=== PATIENT | male | born 1960 | race Caucasian/White ===

== ENCOUNTER → 2020-02-27 | Outpatient (CLI) | payer BC ==
[~2020-02-27] MED LIST: CALCITRIOL PO; COREG 25MG25 MG/TAB PO; GLUCOTROL XL10 MG PO; HUMALOG100 U/ML SQ; LASIX 20MG TABL20 MG PO; LIPITOR20 MG PO; LOFIBRA160 MG PO; REVATIO20 MG PO; SYNTHROID0.137 MG; ZYLOPRIM 300MG300 MG PO
== END ==
LOC: COL.VAS 08:09
DX: N18.5 Chronic kidney disease, stage 5 (principal)

== ENCOUNTER 2020-03-02 14:32 | Inpatient (IN) | payer BC ==
[~2020-03-02] VITALS: Ht 182.9 cm; Wt 118.5 kg
[2020-03-03] MEDS ORDERED: ZYLOPRIM 300MG300 MG PO (09:21)
[2020-03-03] MEDS ORDERED: LIPITOR20 MG PO (09:22)
[2020-03-03] MEDS ORDERED: LASIX 20MG TABL20 MG PO (09:24)
[2020-03-03] MEDS ORDERED: CALCITRIOL PO (09:26)
[2020-03-03 09:27] VITALS: BP 168/58; PULSE 61; TEMP 98.4
[2020-03-03] MEDS ORDERED: COREG 25MG25 MG/TAB PO (09:27)
[2020-03-03] MEDS ORDERED: LOFIBRA160 MG PO (09:27)
[2020-03-03] MEDS ORDERED: GLUCOTROL XL10 MG PO (09:29)
[2020-03-03] MEDS ORDERED: SYNTHROID0.137 MG (09:30)
[2020-03-03 09:31] LABS: BASO % 0.3 % (0.0-2.0); EOS # 0.4 (0.0-0.7); EOS % 5.7 % (0-4.0); GRAN # 5.6 (1.4-6.5); GRAN % 71.8 % (42.2-75.2); LYMPH # 1.1 (1.2-3.4); LYMPH % 13.5 % (20.0-51.0); MEAN CELL VOLUME 95 fl (80.0-100.0); MEAN CORPUSCULAR HGB CONC 32 g/dl (33.0-37.0); MEAN PLATELET VOLUME 10.5 fl (7.4-10.4); MONO # 0.6 (0.1-0.6); MONO % 8.2 % (1.7-9.3); PLATELET COUNT 186 K/mm3 (130-400); RED BLOOD COUNT 3.15 M/mm3 (4.20-5.60); REDCELL DISTRIBUTION WIDTH-CV 13.8 % (11.5-14.5)
[2020-03-03] MEDS ORDERED: REVATIO20 MG PO (09:33)
[2020-03-03 09:34] LABS: HEMATOCRIT 29.8 % (42.0-52.0); HEMOGLOBIN 9.4 g/dl (13.5-18.0); MEAN CORPUSCULAR HEMOGLOBIN 30 pg (27.0-31.0)
[2020-03-03 09:47] LABS: ALBUMIN 3.7 gm/dL (3.5-5.0); BILIRUBIN,TOTAL 0.5 mg/dL (0.0-1.0); CALCIUM 8.9 mg/dL (8.4-10.2); CREATININE, serum 5.21 (0.66-1.25); PHOSPHOROUS 5.5 mg/dL (2.5-4.5); POTASSIUM 3.9 mmol/L (3.4-5.0); TOTAL PROTEIN 6.5 gm/dL (6.4-8.2)
--- NOTE | 2020-03-03 10:36 | NUR ---
Pt up to room 315, initial completed by CARSON Gates. Pt is A&O, independent in room. Pt on room air, denies any pain, dizziness, SOB, N/V/D. 20G RFA INT IV started by BUD mendez. Pt to have dialysis catheter placed, consent signed, all questions answered. Allergies and med rec completed. No further needs at this time.
[2020-03-03 10:50] VITALS: BP 184/81; PULSE 62
--- NOTE | 2020-03-03 10:54 | NUR ---
SEE MERGE DOCUMENTATION FOR MEDICATION ADMINISTRATION TIMES AND INTRA/POST PROCEDURE SEDATION ASSESSMENTS.
--- NOTE | 2020-03-03 12:04 | NUR ---
Pt back from catheter placement procedure. Pt is A&O, denies pain. RIJ placement site is CDI. Pt hooked up to VS monitoring. BP slightly elevated, will give PRN hydralazine. No further needs at this time.
--- NOTE | 2020-03-03 12:04 | NUR ---
SW met with patient to complete intake. Patient states that he recently moved from [place] and stays with his daughter and in [place]. He states that his is Flakita [phone]. He provides that he does not utilize any DME. Patient also provides that he is independent. Patient provides that his PCP is Luis M Mcmanus, he obtains medications from the [facility] in [place], [place], and states that he is able to afford his medications. Patient states that he believes that he has the documentation for DPOA-HC somewhere, but does not know where this documentation is specifically. SW offered DPOA-HC documentation to appoint someone and patient stated he would like to obtain the documentation to review information and get back to the SW at a later time on who he would like to appoint. SW provided DPOA-HC documenation to patient. Patient states that he has no questions or concerns about dishcarge at this time. SW will continue to follow.
[2020-03-03 13:11] LABS: IRON,SERUM 58 ug/dL (35-150)
[2020-03-03 13:20] LABS: TOTAL IRON BINDING CAPACITY 326 ug/dL (261-462)
[2020-03-03 16:04] VITALS: BP 164/60; PULSE 58; TEMP 97.7
--- NOTE | 2020-03-03 19:25 | NUR ---
Pt went to dialysis shortly after procedure, around 1230. Pt did not receive PRN hydralazine d/t going to dialysis. Pt tolerated well. Pt stated he had some pain/discomfort to RIJ site around 1830, Ultram PRN given. Admission completed. Pt is doing well, A&O, independent. RFA INT IV flushes w/o complications. No other needs expressed.
--- NOTE | 2020-03-03 20:32 | NUR ---
Pt assessment completed and documented. Pt sitting in recliner watching tv. Pt alert and oriented x4. Complaints of 7/10 deep pain to right chest where dialysis cath was placed. PRN tylenol given per orders. INT to right forearm without complications. PT denies any other needs at this time. Call light within reach. Will continue to monitor.
[2020-03-03 20:39] LABS: HEPATITIS B CORE AB,TOTAL Negative (()); HEPATITIS B SURFACE ANTIBODY <2.0 (()); HEPATITIS B SURFACE ANTIGEN Negative (Negative); HEPATITIS C VIRUS ANTIBODY Negative (Negative)
[2020-03-03 20:50] VITALS: BP 183/65; PULSE 64; TEMP 98.2
[2020-03-03 21:24] VITALS: BP 182/60; PULSE 64
[2020-03-03 23:59] VITALS: BP 185/62; PULSE 59; TEMP 98.7
[2020-03-04] VITALS (7 sets, daily range): BP systolic 149–193; BP diastolic 54–64; PULSE 59–79; TEMP 97.7–98.7
--- NOTE | 2020-03-04 05:31 | NUR ---
Pt had uneventful shift. Pt rested well throughout the night. PRN hydralazine given x2 per orders for elevated BP. INT to right forearm free of complications. Complaints of pain at the beginning of the night to right chest dialysis cath site. PRN tylenol given x1 per orders. Pt denied pain for the remainder of the night. Pt denies any other needs at this time. Call light within reach. Will continue to monitor.
--- NOTE | 2020-03-04 06:39 | NUR ---
Report given to BUD Sotelo
[2020-03-04 08:31] LABS: BASO % 0.3 % (0.0-2.0); EOS # 0.4 (0.0-0.7); EOS % 5.8 % (0-4.0); GRAN # 4.3 (1.4-6.5); GRAN % 69.8 % (42.2-75.2); LYMPH % 15.4 % (20.0-51.0); MEAN CELL VOLUME 95 fl (80.0-100.0); MEAN CORPUSCULAR HGB CONC 32 g/dl (33.0-37.0); MEAN PLATELET VOLUME 10.2 fl (7.4-10.4); MONO # 0.5 (0.1-0.6); MONO % 8.4 % (1.7-9.3); PLATELET COUNT 156 K/mm3 (130-400); REDCELL DISTRIBUTION WIDTH-CV 13.8 % (11.5-14.5)
[2020-03-04] MEDS ORDERED: HUMALOG100 U/ML SQ (08:32)
[2020-03-04 08:37] LABS: HEMATOCRIT 28.4 % (42.0-52.0); HEMOGLOBIN 9.1 g/dl (13.5-18.0); MEAN CORPUSCULAR HEMOGLOBIN 30 pg (27.0-31.0)
[2020-03-04 08:39] LABS: ALBUMIN 3.4 gm/dL (3.5-5.0); CALCIUM 8.8 mg/dL (8.4-10.2); CREATININE, serum 4.65 (0.66-1.25); PHOSPHOROUS 4.8 mg/dL (2.5-4.5)
--- NOTE | 2020-03-04 10:48 | NUR ---
pt assessment completed and charted. Medications administered per oct. Pt denies pain or discomfort at this time or need for pain medication. [facility] dialysis cath in place, site is CDI, some soreness noted "but better than yesterday" per pt. RFA INT IV flushes w/o complications. Pt on room air, breathing is even and unlabored. Pt denies SOB, N/V/D. BS active x4. Mild edema noted to BLE. Pt has had elevated blood pressures, Ruby RN notified and aware. Hydralazine PRN administered and pt will be going to dialysis this afternoon. No further needs expressed.
--- NOTE | 2020-03-04 11:22 | NUR ---
First visit from the engineer operations and maintenance. No needs right now.
--- NOTE | 2020-03-04 12:35 | NUR ---
Pt down for dialysis at this time.
--- NOTE | 2020-03-04 18:52 | NUR ---
Pt back from dialysis around 1600. VSS. Pt started feeling "unwell" and BP was getting low during dialysis, states he feels ok now. Pt received Novolog per sliding scale and provided w/ turkey sandwich since he missed lunch. [facility] site is [facility], no issues noted. No other concerns expressed.
--- NOTE | 2020-03-04 20:05 | NUR ---
Pt assessment completed and documeted. Pt sitting up in chair watching television. Complaints of 3/10 pain to right IJ dialysis catheter site that is described as tender. Denies need for PRN pain medication at this time. Right IJ dialysis cath CDI and without complications. Right forearm INT patent and without complications. Pt denies any other needs at this time. Call light within reach. Will continue to monitor.
--- NOTE | 2020-03-04 22:04 | NUR ---
Blood sugar checked and is 220 at this time. Will administer sliding scale insulin per orders.
[2020-03-05] VITALS (9 sets, daily range): BP systolic 121–151; BP diastolic 46–63; PULSE 61–75; TEMP 97.7–98.8
--- NOTE | 2020-03-05 05:00 | NUR ---
Pt had uneventful shift. Pt stated he was able to get some rest tonight. PRN tylenol given x1 per orders for pain located to right IJ dialysis catheter site. Pt NPO since midnight for procedure.INT to right forearm without complications. Pt denies any other needs at this time. Call light within reach.
[2020-03-05 06:24] LABS: BASO % 0.3 % (0.0-2.0); EOS # 0.3 (0.0-0.7); EOS % 5.3 % (0-4.0); GRAN # 4.2 (1.4-6.5); MEAN CELL VOLUME 96 fl (80.0-100.0); MEAN CORPUSCULAR HGB CONC 31 g/dl (33.0-37.0); MEAN PLATELET VOLUME 11.1 fl (7.4-10.4); MONO # 0.6 (0.1-0.6); MONO % 9.9 % (1.7-9.3); PLATELET COUNT 128 K/mm3 (130-400); RED BLOOD COUNT 2.94 M/mm3 (4.20-5.60); REDCELL DISTRIBUTION WIDTH-CV 13.8 % (11.5-14.5)
[2020-03-05 06:37] LABS: ALBUMIN 3.2 gm/dL (3.5-5.0); CALCIUM 8.7 mg/dL (8.4-10.2); CREATININE, serum 4.02 (0.66-1.25); PHOSPHOROUS 4.3 mg/dL (2.5-4.5)
[2020-03-05 06:50] LABS: HEMATOCRIT 28.1 % (42.0-52.0); HEMOGLOBIN 8.7 g/dl (13.5-18.0); MEAN CORPUSCULAR HEMOGLOBIN 30 pg (27.0-31.0)
--- NOTE | 2020-03-05 11:02 | NUR ---
Patient has left floor to go for procedure. Ordered fluids were initiated and patient was dressed in gown per surigal request. Consent was noted to be signed.
--- NOTE | 2020-03-05 14:45 | NUR ---
Patient returned from procedure at 1315. Was awake and alert, did state he could use a nap. He requested a drink of water. Head of bed was elevated and ice water provided. Did drink without difficulty. Incision is noted to be in left AC. Edges are well approximated, there is no drainage. Patient states his arm is sore at the incison site but mainly at his left shoulder, he voiced it was because he had it over his head for too long. PRN tramadol provided. Ate lunch without difficulty, no nausea. Call light and personal items are within reach
--- NOTE | 2020-03-05 19:10 | NUR ---
Received report from Kortney. Seen patient awake, sitting in the recliner. With INt on right forearm. With fistula on left forearm, incision is clean, dry and intact. He is independent in the room. Instructed on fluid restriction of 1500ml.
--- NOTE | 2020-03-05 19:17 | NUR ---
REPORT GIVEN TO ONCOMING SHIFT. PATIENT IS UP IN RECLINER TALKING ON PHONE. DID ASSESS INCISION TO THE LEFT AC AND EDGES ARE WELL APPROXIMATED, NO REDNESS OR DRAINAGE.
[2020-03-06 00:13] VITALS: BP 155/62; PULSE 65; TEMP 98.4
--- NOTE | 2020-03-06 07:00 | NUR ---
Patient had an uneventful night. He states he was able to sleep. This morning he just verbalized pain on his IJ insertion site with pain score of 4/10. Tylenol PRN given.
--- NOTE | 2020-03-06 07:02 | NUR ---
Bedside shift report received from BUD Harrell. pT in bed resting, awakens easily, denies needs, will continue to monitor.
--- NOTE | 2020-03-06 07:57 | NUR ---
Assessment hcarted. Pt escorted down to dialysis via wheelchair. pt independent to w/c, awake nad alert, denies pain or other needs. Bruit and thrill auscultated to GEORGESE. RUC HD catheter. RFA INT. Will resume care after dialysis.
[2020-03-06 09:13] LABS: BASO % 0.3 % (0.0-2.0); EOS # 0.4 (0.0-0.7); EOS % 4.6 % (0-4.0); GRAN % 75.3 % (42.2-75.2); LYMPH # 0.9 (1.2-3.4); LYMPH % 11.4 % (20.0-51.0); MEAN CELL VOLUME 96 fl (80.0-100.0); MEAN CORPUSCULAR HGB CONC 32 g/dl (33.0-37.0); MEAN PLATELET VOLUME 11.1 fl (7.4-10.4); MONO # 0.6 (0.1-0.6); MONO % 8.1 % (1.7-9.3); PLATELET COUNT 156 K/mm3 (130-400); RED BLOOD COUNT 2.87 M/mm3 (4.20-5.60); REDCELL DISTRIBUTION WIDTH-CV 14.1 % (11.5-14.5)
[2020-03-06 09:15] LABS: HEMATOCRIT 27.4 % (42.0-52.0); HEMOGLOBIN 8.7 g/dl (13.5-18.0); MEAN CORPUSCULAR HEMOGLOBIN 30 pg (27.0-31.0)
[2020-03-06 09:28] LABS: ALBUMIN 3.3 gm/dL (3.5-5.0); CALCIUM 8.8 mg/dL (8.4-10.2); CREATININE, serum 4.82 (0.66-1.25); PHOSPHOROUS 4.5 mg/dL (2.5-4.5); POTASSIUM 4.1 mmol/L (3.4-5.0)
[2020-03-06] MEDS ORDERED: ULTRAM 50MG TAB50 MG PO (10:37)
[2020-03-06] MEDS ORDERED: COZAAR 25MG25 MG/TAB PO (10:42)
[2020-03-06 11:53] VITALS: BP 153/57; PULSE 64; TEMP 98
--- NOTE | 2020-03-06 13:00 | NUR ---
Discharge teaching completed at this time. Pt recieved discharge packet, f/u appoitnment, and script. Answered all questions. Pt left with all belongings, escorted out by medicals staff, to drive home, criteria met.
== END 2020-03-06 13:30 | disposition home or self-care (01) | DRG 673 ==
LOC: MEDICAL 03-03 08:08
PROVIDERS: Surgery; ADMIT Internal Medicine Nephrology
PROC: 0JH63XZ Insertion of Tunneled Vascular Access Device into Chest Subcutaneous Tissue and Fascia, Percutaneous Approach (ICD-10-PCS; 2020-03-03)
PROC: 02H633Z Insertion of Infusion Device into Right Atrium, Percutaneous Approach (ICD-10-PCS; 2020-03-03)
PROC: 5A1D70Z Performance of Urinary Filtration, Intermittent, Less than 6 Hours Per Day (ICD-10-PCS; 2020-03-05)
PROC: 03180ZD Bypass Left Brachial Artery to Upper Arm Vein, Open Approach (ICD-10-PCS; principal; 2020-03-05 11:00)
DX: I12.0 Hypertensive chronic kidney disease with stage 5 chronic kidney disease or end stage renal disease (principal); N18.6 End stage renal disease; E11.22 Type 2 diabetes mellitus with diabetic chronic kidney disease; E11.40 Type 2 diabetes mellitus with diabetic neuropathy, unspecified; E03.9 Hypothyroidism, unspecified; E66.01 Morbid (severe) obesity due to excess calories; E78.5 Hyperlipidemia, unspecified; M10.9 Gout, unspecified; E83.39 Other disorders of phosphorus metabolism; I25.2 Old myocardial infarction; Z79.84 Long term (current) use of oral hypoglycemic drugs
CPT/HCPCS: C1769; J0360; J0690; J1644; J1815; J2250; J2405; J2704; J2916; J3010; J7030; Q5105

== ENCOUNTER 2020-08-24 11:09 | Outpatient (CLI) | payer BC ==
[2020-08-24] VITALS (7 sets, daily range): BP systolic 173–192; BP diastolic 72–81; PULSE 57–69; TEMP 98
[~2020-08-24] VITALS: Ht 183 cm; Wt 125.9 kg
[~2020-08-24 11:09] MED LIST changes: +COZAAR 25MG25 MG/TAB PO; +ULTRAM 50MG TAB50 MG PO
--- NOTE | 2020-08-24 13:35 | NUR ---
Report from Juan FARRELL. Alert and oriented, denies pain and needs at this time. Bandaid to left upper arm fistula noted CD&I. VSS
--- NOTE | 2020-08-24 14:35 | NUR ---
INT discontinued intact. Discharge instructions given. Transferred to private car by bautista
== END 2020-08-24 14:45 | disposition home or self-care (01) ==
LOC: COL.CAR 11:09
DX: T82.898A Other specified complication of vascular prosthetic devices, implants and grafts, initial encounter (principal)
CPT/HCPCS: J1644; J2250; J3010; Q9967

== ENCOUNTER 2020-12-22 08:32 | Outpatient (CLI) | payer BC ==
[2020-12-22] VITALS (7 sets, daily range): BP systolic 140–191; BP diastolic 51–81; PULSE 59–99; TEMP 98.4
[~2020-12-22] VITALS: Ht 183 cm; Wt 125.0 kg
[~2020-12-22 08:32] MED LIST changes: +AURYXIA1 GM PO; +GLUCOTROL10 MG PO; +SYNTHROID0.125 MG/T PO
[2020-12-22] MEDS ORDERED: LASIX 20MG TABL20 MG PO (09:41)
[2020-12-22] MEDS ORDERED: NOVOLIN R100 U/ML SQ (09:43)
--- NOTE | 2020-12-22 10:44 | NUR ---
SEE MERGE FOR ALL MEDICATION ADMINISTRATION TIMES, INTRA AND POST SEDATION ASSESSMENTS
--- NOTE | 2020-12-22 11:20 | NUR ---
PT TO EU 15 VIA BED FROM MANAGER RESEARCH AND DEVELOPMENT, AWAKE AND ALERT, IN ROOM, DRESSING OVER RIGHT/CENTER CHEST AREA CLEAN AND DRY. CALL LIGHT IN REACH, TAKES JUICE
--- NOTE | 2020-12-22 11:50 | NUR ---
NO C/O, PT DOZES IN BED
--- NOTE | 2020-12-22 13:00 | NUR ---
PT HAD SNACK, SITS UP TOLERATES WELL, REVIEWED DISCHARGE INST. WITH PT ON CARE OF SITE, PRECAUTIONS, AND MODERATE SEDATION INST. WITH VERBAL UNDERSTANDING. PT STATES MAY DO DIALYSIS TODAY, BUT CHANGES HIS DRESSING SITE EVERY OTHER TIME. INT D'CD INTACT, PT UP IN ROOM, AND DISCHARGED VIA W/C TO CAR AT 1310
== END 2020-12-22 13:10 | disposition home or self-care (01) ==
LOC: COL.CAR 08:32
DX: T82.898A Other specified complication of vascular prosthetic devices, implants and grafts, initial encounter (principal); E11.22 Type 2 diabetes mellitus with diabetic chronic kidney disease; N18.6 End stage renal disease; Z99.2 Dependence on renal dialysis; E03.9 Hypothyroidism, unspecified; Z79.4 Long term (current) use of insulin; Z87.891 Personal history of nicotine dependence
CPT/HCPCS: J1644; J2250; J3010

== ENCOUNTER 2021-01-11 08:53 | Day surgery (SDC) | payer BC, MEDICARE ==
[~2021-01-11] VITALS: Ht 182.9 cm; Wt 126.4 kg
[~2021-01-11 08:53] MED LIST changes: +NOVOLIN R100 U/ML SQ
[2021-01-11] MEDS ORDERED: NORVASC2.5 MG PO (09:34)
[2021-01-11 09:35] VITALS: BP 167/63; PULSE 62; TEMP 97.8
[2021-01-11 12:18] VITALS: BP 134/55; PULSE 59; TEMP 97.6
--- NOTE | 2021-01-11 12:18 | NUR ---
Patient arrives to [facility] [place] [facility] via cart, accompanied by COMPLEX MANAGER Tee and MINE MANAGER Edilson Gallardo. The patient is drowsy, but awake and speaking with staff appropriately. PIV to TKO. Monitoring is applied -VSS and WNL on room air. He denies pain. He has a dialysis catheter in the right upper chest that the insertion site is covered by a clean, dry, intact dressing. His is at the bedside. Lights are dimmed for comfort. Will continue to monitor.
[2021-01-11 12:30] VITALS: BP 144/53; PULSE 56
--- NOTE | 2021-01-11 12:30 | NUR ---
Patient is resting comfortably in his room. Denies pain or nausea. He is offered something to eat/drink; he requests and receives apple juice and water.
[2021-01-11 12:45] VITALS: BP 145/59; PULSE 56
--- NOTE | 2021-01-11 12:45 | NUR ---
Patient is resting comfortably. Tolerating PO well.
[2021-01-11 13:00] VITALS: BP 162/56; PULSE 55
[2021-01-11 13:30] VITALS: BP 148/59; PULSE 54
--- NOTE | 2021-01-11 13:54 | NUR ---
Patient has met discharge criteria. Discharge instructions are discussed. He denies any questions and verbalizes understanding. PIV is removed with catheter intact and hemostasis achieved. He changes to his clothing independently. He is escorted to the exit via wheelchair by staff. He is discharged to home with ride in private vehicle at 1354 to the care of his , who drives them home at 1354.
== END 2021-01-11 13:54 | disposition home or self-care (01) ==
LOC: SDCO 08:53
DX: T82.42XA Displacement of vascular dialysis catheter, initial encounter (principal); E11.22 Type 2 diabetes mellitus with diabetic chronic kidney disease; I12.0 Hypertensive chronic kidney disease with stage 5 chronic kidney disease or end stage renal disease; N18.6 End stage renal disease; I25.2 Old myocardial infarction; E07.9 Disorder of thyroid, unspecified; E78.5 Hyperlipidemia, unspecified; Z20.822 Contact with and (suspected) exposure to COVID-19; Z79.84 Long term (current) use of oral hypoglycemic drugs; Z87.891 Personal history of nicotine dependence; Z79.899 Other long term (current) drug therapy; Z99.2 Dependence on renal dialysis; Z79.890 Hormone replacement therapy; Z95.828 Presence of other vascular implants and grafts
CPT/HCPCS: J0690; J1644; J2405; J2704; J3010; J7030

== ENCOUNTER 2021-05-11 06:49 | Day surgery (SDC) | payer BC, MEDICARE ==
[2021-05-11] VITALS (11 sets, daily range): BP systolic 144–169; BP diastolic 51–79; PULSE 56–72; TEMP 98.2–98.3
[~2021-05-11] VITALS: Ht 182.9 cm; Wt 124.8 kg
[~2021-05-11 06:49] MED LIST changes: +NORVASC2.5 MG PO
[2021-05-11 07:58] LABS: HEMOGLOBIN 10.2 g/dl (13.5-18.0); MEAN CELL VOLUME 95 fl (80.0-100.0); MEAN CORPUSCULAR HEMOGLOBIN 30 pg (27.0-31.0); MEAN CORPUSCULAR HGB CONC 32 g/dl (33.0-37.0); PLATELET COUNT 190 K/mm3 (130-400); REDCELL DISTRIBUTION WIDTH-CV 13.2 % (11.5-14.5)
[2021-05-11 08:01] LABS: HEMATOCRIT 32.3 % (42.0-52.0)
[2021-05-11 08:06] LABS: CALCIUM 8.8 mg/dL (8.4-10.2); CREATININE, serum 6.22 (0.66-1.25); MAGNESIUM 1.8 mg/dL (1.6-2.3); POTASSIUM 4.8 mmol/L (3.4-5.0)
[2021-05-11 08:07] LABS: INR 1.1 (0.8-3.0); PROTHROMBIN TIME 11.7 SECONDS (9.7-12.8)
[2021-05-11 08:10] LABS: PARTIAL THROMBOPLASTIN TIME 28.7 SECONDS (26.0-37.0)
--- NOTE | 2021-05-11 09:24 | NUR ---
SEE MERGE DOCUMENTATION FOR MEDICATION ADMINISTRATION TIMES AND INTRA/POST PROCEDURE SEDATION ASSESSMENTS.
--- NOTE | 2021-05-11 15:13 | NUR ---
Pt in dialysis at this time. Off from bedrest. No bleeding visualized to R femoral.
--- NOTE | 2021-05-11 18:30 | NUR ---
Patient tolerated HD tx with 400 mL fluid removal.
--- NOTE | 2021-05-11 18:43 | NUR ---
Pt done with dialysis feels good, denies pain. Site to R femoral CDI. POC discussed with patient. Dialysis catheter to R chest and fistula to LUE. No needs at this time.
--- NOTE | 2021-05-11 20:00 | NUR ---
Assessment complete. Patient is alert and oriented with no complaints of pain. Vital signs stable and right femoral heart cath site shows no signs of bleeidng or hematoma; dressing CDI. Patient is independent in the room with a steady gait. No new concerns, call light in reach.
[2021-05-12 00:13] VITALS: BP 150/55; PULSE 72; TEMP 98.1
[2021-05-12 04:21] VITALS: BP 137/54; PULSE 70; TEMP 98.6
[2021-05-12 07:28] LABS: BASO % 0.3 % (0.0-2.0); EOS # 0.3 (0.0-0.7); EOS % 4.1 % (0-4.0); GRAN # 4.7 (1.4-6.5); GRAN % 74.2 % (42.2-75.2); LYMPH # 0.8 (1.2-3.4); LYMPH % 12.3 % (20.0-51.0); MEAN CELL VOLUME 98 fl (80.0-100.0); MEAN CORPUSCULAR HGB CONC 31 g/dl (33.0-37.0); MEAN PLATELET VOLUME 10.4 fl (7.4-10.4); MONO # 0.6 (0.1-0.6); MONO % 8.6 % (1.7-9.3); PLATELET COUNT 169 K/mm3 (130-400); REDCELL DISTRIBUTION WIDTH-CV 13.2 % (11.5-14.5)
[2021-05-12 07:44] LABS: HEMATOCRIT 31.3 % (42.0-52.0); HEMOGLOBIN 9.7 g/dl (13.5-18.0); MEAN CORPUSCULAR HEMOGLOBIN 30 pg (27.0-31.0)
[2021-05-12 07:45] LABS: CALCIUM 8.6 mg/dL (8.4-10.2); CREATININE, serum 4.99 (0.66-1.25); POTASSIUM 4.6 mmol/L (3.4-5.0)
[2021-05-12 08:31] VITALS: BP 154/52; PULSE 64; TEMP 98.7
--- NOTE | 2021-05-12 09:00 | NUR ---
PT PLEASANT, AOX4, MEDICATIONS GIVEN PER ORDERS, DENIES PAIN, SITITNG UP EATING BREAKFAST AT THE TIME, ASSESSMENT PERFORMED, VITALS REVIEWED, NO OTHER NEEDS
--- NOTE | 2021-05-12 10:13 | NUR ---
Several visit attempts; Quill Cleaner left card offering God's blessings so that patient would know that [facility] is available at [place].
[2021-05-12] MEDS ORDERED: LIPITOR 80MG80 MG PO (10:30)
[2021-05-12] MEDS ORDERED: BRILINTA90 MG PO (10:30)
[2021-05-12] MEDS ORDERED: ASPIRIN 81M81 MG/TA2 PO (10:31)
--- NOTE | 2021-05-12 10:36 | NUR ---
SW met with the patient to discuss discharge plan. The patient lives in [place] with his , Flakita (ph#[phone]), and their youngest daughter. He reports independence with ADLs and does not have any DME. The patient's PCP is Dr. Luis M Mcmanus and he receives his medications from [facility] in [place]. He reports no difficulties obtaining his meds. The patient does not have a DPOA-HC and he was not interested in completin one at this time. The patient plans to return home with his family upon discharge. No additional needs at this time. *Discharge plan: home with family*
--- NOTE | 2021-05-12 11:19 | NUR ---
DISCHARGE EDUCATION PROVIDED, LIMITATIONS ON ANGIOSEAL EDUCATED ON WELL, IV REMOVED, NO OTHER QUESTIONS AT THIS TIME.
--- NOTE | 2021-05-12 12:30 | NUR ---
PT ESCORTED OUT WITH PT BELONGINGS. NO OTHER NEEDS
== END 2021-05-12 12:33 | disposition home or self-care (01) ==
LOC: COL.CAR 06:49 → MEDICAL 11:06 → COL.CAR 05-12 12:33
PROVIDERS: Internal Medicine Cardiovascular Disease
DX: I25.10 Atherosclerotic heart disease of native coronary artery without angina pectoris (principal); I25.2 Old myocardial infarction; E11.22 Type 2 diabetes mellitus with diabetic chronic kidney disease; I12.0 Hypertensive chronic kidney disease with stage 5 chronic kidney disease or end stage renal disease; N18.6 End stage renal disease; E66.01 Morbid (severe) obesity due to excess calories; M10.9 Gout, unspecified; E03.9 Hypothyroidism, unspecified; E78.49 Other hyperlipidemia; I73.9 Peripheral vascular disease, unspecified; Z99.2 Dependence on renal dialysis; Z79.890 Hormone replacement therapy; Z87.891 Personal history of nicotine dependence; Z95.828 Presence of other vascular implants and grafts; Z79.4 Long term (current) use of insulin; Z68.37 Body mass index [BMI] 37.0-37.9, adult; Z79.899 Other long term (current) drug therapy; Z79.82 Long term (current) use of aspirin
CPT/HCPCS: OP; C1760; C1769; C1876; C1887; C1894; J0583; J1644; J1815; J2250; J3010; J7030; Q5105; Q9967

== ENCOUNTER 2021-09-23 10:19 | Outpatient (CLI) | payer BC, MEDICARE ==
[~2021-09-23] VITALS: Ht 183 cm; Wt 122.4 kg
[2021-09-23] VITALS (9 sets, daily range): BP systolic 151–191; BP diastolic 62–82; PULSE 57–92; TEMP 97.6
[~2021-09-23 10:19] MED LIST changes: +ASPIRIN 81M81 MG/TA2 PO; +BRILINTA90 MG PO; +LIPITOR 80MG80 MG PO
[2021-09-23] MEDS ORDERED: PLAVIX 75MG TAB75 MG PO (10:39)
[2021-09-23] MEDS ORDERED: AURYXIA1 GM PO (10:42)
[2021-09-23] MEDS ORDERED: ASPIRIN 81M81 MG/TA2 PO (10:43)
[2021-09-23] MEDS ORDERED: LIPITOR 80MG80 MG PO (10:44)
--- NOTE | 2021-09-23 11:17 | NUR ---
SEE MERGE DOCUMENTATION FOR MEDICATION ADMINISTRATION AND INTRA/POST PROCEDURE SEDATION ASSESSMENTS.
--- NOTE | 2021-09-23 12:15 | NUR ---
Back from Radiology by bed. Alert and oriented, denies pain and needs at this time. Bandaids to left forearm CD&I
--- NOTE | 2021-09-23 14:30 | NUR ---
INT discontinued intact. Discharge instructions given. Transferred to private car by bautista
== END 2021-09-23 14:40 | disposition home or self-care (01) ==
LOC: COL.CAR 10:19
DX: T82.858A Stenosis of other vascular prosthetic devices, implants and grafts, initial encounter (principal); N18.6 End stage renal disease; E11.9 Type 2 diabetes mellitus without complications; I10 Essential (primary) hypertension; Z79.82 Long term (current) use of aspirin; Z79.01 Long term (current) use of anticoagulants; Z79.890 Hormone replacement therapy; Z79.899 Other long term (current) drug therapy; Z79.4 Long term (current) use of insulin; Z79.84 Long term (current) use of oral hypoglycemic drugs; Z87.891 Personal history of nicotine dependence
CPT/HCPCS: C1725; C1894; J1644; J2250; J3010; Q9967

== ENCOUNTER 2021-10-05 10:57 | Day surgery (SDC) | payer BC, MEDICARE ==
[~2021-10-05] VITALS: Ht 182.9 cm; Wt 121.0 kg
[~2021-10-05 10:57] MED LIST changes: +PLAVIX 75MG TAB75 MG PO
[2021-10-05 11:57] VITALS: BP 188/80; PULSE 66; TEMP 97.2
[2021-10-05] MEDS ORDERED: NOVOLOG FLEX100 U/ML SQ (12:06)
[2021-10-05 12:07] LABS: CALCIUM 8.8 mg/dL (8.4-10.2); CREATININE, serum 4.1 mg/dL (0.72-1.25); POTASSIUM 4.4 mmol/L (3.5-4.5)
[2021-10-05 12:50] VITALS: BP 151/77; PULSE 63; TEMP 96.3
--- NOTE | 2021-10-05 12:53 | NUR ---
Dr. Rae speaking with pt, addressed pt BP and recommended seeing primary care about elevated BP.
[2021-10-05 13:05] VITALS: BP 165/72; PULSE 59
[2021-10-05 13:20] VITALS: BP 183/83; PULSE 60
--- NOTE | 2021-10-05 13:45 | NUR ---
1250 Pt returns from endo procedure via cart and RN assist to GI [place] [facility]. Pt ambulates from cart to recliner with RN assist. Monitors on and alarms set. Call light within reach. Report received from BUD Mancilla. Pt alert and oriented. Pt requests tea and muffin. Pt denies any pain or nausea. 1305 Pt taking food and drink well. No complications noted. 1320 Discharge instructions given to pt. All questions answered to pt and 's satisfaction. Handed to pt are a thank you card and discharge information. 1345 Pt transferred out of the hospital via wheelchair and RN assist, to private vehicle driven by .
== END 2021-10-05 13:45 | disposition home or self-care (01) ==
LOC: SDCO 10:57
PROVIDERS: Nurse Anesthetist, Certified Registered
DX: Z12.11 Encounter for screening for malignant neoplasm of colon (principal); D12.5 Benign neoplasm of sigmoid colon; K57.30 Diverticulosis of large intestine without perforation or abscess without bleeding; K21.9 Gastro-esophageal reflux disease without esophagitis; N18.6 End stage renal disease; E78.5 Hyperlipidemia, unspecified; E66.01 Morbid (severe) obesity due to excess calories; E11.22 Type 2 diabetes mellitus with diabetic chronic kidney disease; E07.9 Disorder of thyroid, unspecified; E78.49 Other hyperlipidemia; I25.10 Atherosclerotic heart disease of native coronary artery without angina pectoris; I25.2 Old myocardial infarction; I12.0 Hypertensive chronic kidney disease with stage 5 chronic kidney disease or end stage renal disease; Z95.1 Presence of aortocoronary bypass graft; Z79.82 Long term (current) use of aspirin; Z79.4 Long term (current) use of insulin; Z79.899 Other long term (current) drug therapy; Z99.2 Dependence on renal dialysis; Z79.890 Hormone replacement therapy
CPT/HCPCS: J2704

== ENCOUNTER → 2022-11-18 | Outpatient (CLI) | payer MEDICARE, BC ==
[~2022-11-18] MED LIST changes: +NOVOLOG FLEX100 U/ML SQ
== END ==
LOC: COL.RAD 10:09
DX: K80.20 Calculus of gallbladder without cholecystitis without obstruction (principal); R91.8 Other nonspecific abnormal finding of lung field
CPT/HCPCS: Q9967

== ENCOUNTER 2023-12-18 23:35 | Inpatient (IN) | payer MEDICARE, BC ==
[~2023-12-18] VITALS: Ht 182.9 cm; Wt 116.8 kg
[~2023-12-18 23:35] MED LIST changes: +AFRIN 15 ML15 ML NS; +PHOSLO667 MG PO; -SYNTHROID0.125 MG/T PO; +SYNTHROID0.2 MG/TAB PO
[2023-12-18 23:57] LABS: BASO % 0.2 % (0.0-2.0); EOS # 0.1 K/mm3 (0.0-0.7); EOS % 0.6 % (0.0-4.0); GRAN # 9.3 K/mm3 (1.4-6.5); GRAN % 87.4 % (42.2-75.2); LYMPH # 0.4 K/mm3 (1.2-3.4); LYMPH % 3.9 % (20.0-51.0); MEAN CELL VOLUME 96 fl (80.0-100.0); MEAN CORPUSCULAR HEMOGLOBIN 33 pg (27-31); MEAN CORPUSCULAR HGB CONC 34 g/dl (33.0-37.0); MEAN PLATELET VOLUME 10.6 fl (7.4-10.4); MONO # 0.8 K/mm3 (0.1-0.6); MONO % 7.4 % (1.7-9.3); PLATELET COUNT 174 K/mm3 (130-400); RED BLOOD COUNT 3.38 M/mm3 (4.20-5.60); REDCELL DISTRIBUTION WIDTH-CV 13.1 % (11.5-14.5)
[2023-12-19] VITALS (9 sets, daily range): BP systolic 119–144; BP diastolic 61–67; PULSE 69–80; TEMP 99.5–102.8
[2023-12-19 00:03] LABS: HEMATOCRIT 32.4 % (42.0-52.0)
[2023-12-19 00:18] LABS: ALBUMIN 3.1 g/dL (3.4-4.8); BILIRUBIN,TOTAL 0.6 mg/dL (0.2-1.2); C-REACTIVE PROTEIN 27.98 mg/dL (0.00-0.50); CREATININE, serum 7.26 mg/dL (0.72-1.25); POTASSIUM 4.4 mEq/L (3.5-4.5); TOTAL PROTEIN 7.1 g/dl (6.2-8.1)
[2023-12-19 01:01] LABS: TROPONIN-I 0.022 ng/mL (0.00-0.033)
[2023-12-19] MEDS ORDERED: Cefepime 1 G in Water For Injection,Sterile 10 ML IV ONE (01:30)
[2023-12-19] MEDS ORDERED: oxyCODONE 5 MG TAB PO PRN (02:00)
[2023-12-19] MEDS ORDERED: Acetaminophen 325 MG TAB PO PRN (02:00)
[2023-12-19] MEDS ORDERED: Ondansetron 4 MG/2 ML VIAL IV PRN (02:00)
[2023-12-19] MEDS ORDERED: Vancomycin 1.25 GM,Special Dose/Pharmacy Prepared 1.25 GM in NS 250 ML IV SCH (02:00)
[2023-12-19] MEDS ORDERED: Morphine 4 MG/ML VIAL IV PRN (02:00)
[2023-12-19] MEDS ORDERED: Dextrose (Glucose) 15 GM (4 x 3.75 GM) Chewable TABLET PACK PO PRN (03:30)
[2023-12-19] MEDS ORDERED: Glucagon 1 MG VIAL IM PRN (03:30)
[2023-12-19] MEDS ORDERED: Dextrose 50% Water 25 GM/50 ML SYRINGE IV PRN (03:30)
--- NOTE | 2023-12-19 04:18 | NUR ---
Patient arrived to the unit at this time with personal belongings. Assessment and med rec complete. Denies any pain at this time. Water provided. IV in right forearm flush easily with no complications. Oriented patient to bed, room, call light, bathroom, and phone. Call light and personal items in reach. Bed in low position and bed alarm on.
[2023-12-19] MEDS ORDERED: *Vancomycin Dosing Protocol IV SCH (04:30)
--- NOTE | 2023-12-19 06:10 | NUR ---
Patient resting in bed. Denies any pain or needs at this time. Call light and personal items in reach. Bed in low position and bed alarm on.
[2023-12-19] MEDS ORDERED: Calcium Acetate 667 MG TAB/CAP PO SCH (07:00)
--- NOTE | 2023-12-19 07:40 | NUR ---
pt a&ox4 resting in bed. assisted to bathroom, gait steady. pt denies pain. vss. dressing to right foot is cdi. dr escobar notified for consult. INT to right forearm is patent. dialysis catheter to right chest, dressing cdi. pt reports having a cough. denies needs at this time. call light in reach.
[2023-12-19] MEDS ORDERED: Insulin Lispro (HumaLOG) SQ SCH (08:00)
[2023-12-19] MEDS ORDERED: Fenofibrate 54 MG TABLET PO SCH (09:00)
[2023-12-19] MEDS ORDERED: Heparin 5,000 UNITS/ML 1 ML VIAL SQ SCH (09:00)
[2023-12-19] MEDS ORDERED: Allopurinol 300 MG TAB PO SCH (09:00)
[2023-12-19] MEDS ORDERED: Sennosides/Docusate 8.6-50 MG TAB PO SCH (09:00)
[2023-12-19] MEDS ORDERED: Calcitriol 0.25 MCG CAP PO SCH (09:00)
[2023-12-19] MEDS ORDERED: guaiFENesin/Dextromethorphan Oral Soln 200-20 MG/10 ML UD PO PRN (11:00)
[2023-12-19] MEDS ORDERED: Albuterol/Ipratropium 3 MG-0.5 MG/3 ML Neb Soln IH PRN (11:00)
--- NOTE | 2023-12-19 11:05 | NUR ---
called dr santiago office at [facility] dermatology ( [phone] ) for results on pts biopsy, sent to [employer] and message was left.
--- NOTE | 2023-12-19 11:25 | NUR ---
D: Initial visit: Medical Program Specialist stopped by room on rounds. A: Pt was resting and content with daughter in the room. Pt has no needs right now, but appreciated the visit. P: Medical Program Specialist informed pt that if he needed anything from the [facility]acks[place] man area to let his nurse know. Medical Program Specialist will follow up as needed.
--- NOTE | 2023-12-19 11:30 | NUR ---
Leonora at [facility] called back and reports that biopsy results are not back yet but will leave a note to have results faxed to us when they recieve them.
--- NOTE | 2023-12-19 11:51 | NUR ---
Microsoft Net Developer attended clinical rounds. SW met with patient at bedside to discuss discharge planning. Patient verified that he lives in [place] with his Flakita ([phone]) and adult daughter Polly. Patient sees Dr. Mcmanus as his PCP, uses [facility] without difficulty of affording medications. Patient uses no DME. Patient is on home hemodialysis MWF. He denies having completed a DPOA but states he is working with SW at dialysis clinic to complete advanced directives. Patient denies any discharge needs and states his plan is to return home with to transport. Discharge plan: home
[2023-12-19] MEDS ORDERED: Heparin 1,000 UNITS/ML 10 ML Multi-Dose VIAL IV SCH (13:15)
--- NOTE | 2023-12-19 13:35 | NUR ---
pt off floor for MRI
[2023-12-19] MEDS ORDERED: Albuterol/Ipratropium 3 MG-0.5 MG/3 ML Neb Soln IH SCH (14:00)
--- NOTE | 2023-12-19 19:16 | NUR ---
report received from irma vance. pt sitting in bed watching tv. pt denies pain. right foot hao. dr leonard consulting right now. fall precautions in place. call light in reach. all needs met at this time.
[2023-12-20] VITALS (14 sets, daily range): BP systolic 110–156; BP diastolic 46–70; PULSE 72–92; TEMP 98.4–103
--- NOTE | 2023-12-20 00:01 | NUR ---
shift assessment complete, see documentation. pt tolerated hs meds well. pt right foot continues with drainage and sutures intact. right foot dressed. pt denies pain. fall precautions in place. call light in reach. all needs met at this time.
--- NOTE | 2023-12-20 00:27 | NUR ---
pt running temp of 103.0. prn tylenol administered per orders.
[2023-12-20] MEDS ORDERED: Cefepime 1 G in Water For Injection,Sterile 10 ML IV SCH (01:30)
[2023-12-20 06:51] LABS: BASO % 0.2 % (0.0-2.0); EOS # 0.1 K/mm3 (0.0-0.7); EOS % 0.4 % (0.0-4.0); GRAN # 11.7 K/mm3 (1.4-6.5); GRAN % 89.1 % (42.2-75.2); LYMPH # 0.6 K/mm3 (1.2-3.4); LYMPH % 4.2 % (20.0-51.0); MEAN CELL VOLUME 95 fl (80.0-100.0); MEAN CORPUSCULAR HEMOGLOBIN 32 pg (27-31); MEAN CORPUSCULAR HGB CONC 33 g/dl (33.0-37.0); MEAN PLATELET VOLUME 11.4 fl (7.4-10.4); MONO # 0.7 K/mm3 (0.1-0.6); MONO % 5.6 % (1.7-9.3); PLATELET COUNT 172 K/mm3 (130-400); RED BLOOD COUNT 3.17 M/mm3 (4.20-5.60); REDCELL DISTRIBUTION WIDTH-CV 13.1 % (11.5-14.5)
[2023-12-20 06:56] LABS: HEMATOCRIT 30.1 % (42.0-52.0)
[2023-12-20 07:01] LABS: CALCIUM 8.8 mg/dL (8.4-10.2); CREATININE, serum 9.26 mg/dL (0.72-1.25)
--- NOTE | 2023-12-20 08:10 | NUR ---
pt awake and resting in bed. vss. morning meds given as well as tylenol for fever. pt denies pain. right foot dressing is cdi. pt denies needs at this time. call light in reach.
--- NOTE | 2023-12-20 10:48 | NUR ---
pt transferred to dialysis room.
--- NOTE | 2023-12-20 14:14 | NUR ---
pt back in room from dialysis. vss.
--- NOTE | 2023-12-20 19:24 | NUR ---
report received from irma vance. pt sitting in bed watching tv with at bedside. pt denies pain. fall precautions in place. call light in reach. all needs met at this time.
--- NOTE | 2023-12-20 22:17 | NUR ---
shift assessment complete, see documentation. pt tolerated hs meds well. pt continues to deny pain. fall precautions in place. call light in reach. all needs met at this time.
[2023-12-21] VITALS (13 sets, daily range): BP systolic 98–155; BP diastolic 56–69; PULSE 73–90; TEMP 98.5–99.6
--- NOTE | 2023-12-21 01:55 | NUR ---
pt running temp of 102.4. prn tylenol administered per orders. prn robotussin administered per orders for cough.
[2023-12-21 03:32] LABS: URINE APPEARANCE CLOUDY (CLEAR/HAZY); URINE BLOOD NEGATIVE (NEGATIVE); URINE COLOR Dark Yellow (YELLOW); URINE GLUCOSE NEGATIVE (NEGATIVE); URINE KETONE TRACE (NEGATIVE); URINE NITRATE NEGATIVE (NEGATIVE); URINE PROTEIN(semi-quant) 2+ (NEGATIVE); URINE UROBILINOGEN 0.2 E.U/dL (0.2-1.0)
[2023-12-21 03:41] LABS: COLLECTION METHOD CLEAN CATCH
[2023-12-21 06:56] LABS: BASO % 0.2 % (0.0-2.0); EOS # 0.1 K/mm3 (0.0-0.7); EOS % 0.7 % (0.0-4.0); GRAN # 11.1 K/mm3 (1.4-6.5); GRAN % 84.4 % (42.2-75.2); LYMPH # 0.6 K/mm3 (1.2-3.4); LYMPH % 4.8 % (20.0-51.0); MEAN CELL VOLUME 97 fl (80.0-100.0); MEAN CORPUSCULAR HGB CONC 33 g/dl (33.0-37.0); MONO # 1.2 K/mm3 (0.1-0.6); MONO % 8.9 % (1.7-9.3); PLATELET COUNT 149 K/mm3 (130-400); REDCELL DISTRIBUTION WIDTH-CV 13.4 % (11.5-14.5)
[2023-12-21 06:59] LABS: HEMATOCRIT 28.1 % (42.0-52.0); HEMOGLOBIN 9.2 g/dl (13.5-18.0); MEAN CORPUSCULAR HEMOGLOBIN 32 pg (27-31)
--- NOTE | 2023-12-21 07:00 | NUR ---
Pt doing okay during bedside report. Gave him fresh ice water, no other needs at this time
[2023-12-21 07:26] LABS: CALCIUM 8.9 mg/dL (8.4-10.2); CREATININE, serum 7.49 mg/dL (0.72-1.25); POTASSIUM 4.5 mEq/L (3.5-4.5)
[2023-12-21 07:27] LABS: C-REACTIVE PROTEIN 32.72 mg/dL (0.00-0.50)
--- NOTE | 2023-12-21 09:00 | NUR ---
Pt resting with eyes closed, even non labored breathing. at bedside
[2023-12-21] MEDS ORDERED: Insulin Glargine-ygfn (Lantus) SQ SCH (09:55)
[2023-12-21] MEDS ORDERED: metroNIDAZOLE 500 MG/100 ML IVPB IV SCH (10:00)
--- NOTE | 2023-12-21 11:28 | NUR ---
Initial visit; Patient and his thanked Regulator Pin Inserter for stopping and looking in on him. Though Patient mentioned he wasn't comfortable with prayer, Regulator Pin Inserter let him know it is up to all of us how we experience God's presence in our lives and how we choose to communicate with "Him". Both his and him said they appreciated Regulator Pin Inserter saying what she said. Regulator Pin Inserter wished Epifanio well and will keep him in her prayers. Regulator Pin Inserter will follow-up while Epifanio is a patient geraldo.
--- NOTE | 2023-12-21 12:00 | NUR ---
Pt up and had lunch. He did not have any breakfast and slept most of the morning. Kelly from wound care did come in and changed dressing on his right foot. New wound culture obtained and sent to lab. No needs verbalized, call light within reach
[2023-12-21] MEDS ORDERED: Anidulafungin 100 MG in NS 100 ML IV SCH (14:00)
--- NOTE | 2023-12-21 14:20 | NUR ---
Pt doing okay. Drsg changed to right foot at this time. Did wet to dry and then wrapped with kerlix. Pt tolerated with no complaints. Pts and daughter are at bedside at this time
--- NOTE | 2023-12-21 17:30 | NUR ---
Pt doing okay. PRN tylenol given for a headache, states foot is not too bad right now. Pt denies any other needs at this time
[2023-12-21] MEDS ORDERED: Heparin 1,000 UNITS/ML 10 ML Multi-Dose VIAL ICA SCH (18:30)
[2023-12-21] MEDS ORDERED: Heparin 1,000 UNITS/ML 10 ML Multi-Dose VIAL IV SCH (18:30)
--- NOTE | 2023-12-21 22:25 | NUR ---
Patient continues to have a dry cough post robitussin. Spoke to THEO Caban and new orders received and initiated.
[2023-12-21] MEDS ORDERED: Benzonatate 100 MG CAP PO PRN (22:30)
[2023-12-22] VITALS (10 sets, daily range): BP systolic 118–152; BP diastolic 58–69; PULSE 57–77; TEMP 97.9–98.7
--- NOTE | 2023-12-22 05:21 | NUR ---
Patient to dialysis at this time.
--- NOTE | 2023-12-22 06:00 | NUR ---
Bedside report given to BUD Vigil.
[2023-12-22 06:06] LABS: BASO % 0.2 % (0.0-2.0); EOS # 0.2 K/mm3 (0.0-0.7); EOS % 1.5 % (0.0-4.0); GRAN # 10.2 K/mm3 (1.4-6.5); GRAN % 86.8 % (42.2-75.2); LYMPH # 0.8 K/mm3 (1.2-3.4); LYMPH % 6.8 % (20.0-51.0); MEAN CELL VOLUME 95 fl (80.0-100.0); MEAN CORPUSCULAR HGB CONC 33 g/dl (33.0-37.0); MEAN PLATELET VOLUME 12.2 fl (7.4-10.4); MONO # 0.4 K/mm3 (0.1-0.6); MONO % 3.8 % (1.7-9.3); PLATELET COUNT 140 K/mm3 (130-400); REDCELL DISTRIBUTION WIDTH-CV 13.3 % (11.5-14.5)
[2023-12-22 06:09] LABS: HEMATOCRIT 28.5 % (42.0-52.0); HEMOGLOBIN 9.5 g/dl (13.5-18.0); MEAN CORPUSCULAR HEMOGLOBIN 32 pg (27-31)
[2023-12-22 06:22] LABS: CALCIUM 9.2 mg/dL (8.4-10.2); CREATININE, serum 7.51 mg/dL (0.72-1.25); POTASSIUM 3.8 mEq/L (3.5-4.5)
--- NOTE | 2023-12-22 09:42 | NUR ---
PT BACK IN ROOM FROM DIALYSIS, STEADY GAIT, PAIN 5/10 IN RIGHT FOOT AND HEADACHE. NO PRN MEDICATION AVAILABLE BUT LIGHT DIMMED AND COLD WASH CLOTH OFFERED. DRESSING CHANGE TO RIGHT FOOT COMPLETE. RED TINGED DRAINAGE NOTED AND GAUZE WITH KIRLEX APPLIED. AT BEDSIDE, PT TOLERATING DEIT WELL. WILL CONTINUE TO MONITOR.
--- NOTE | 2023-12-22 10:02 | NUR ---
Dialysis Note Pt arrived to unit via WC ud goal set for 2.2 and 2.2 removed. pt dcd without complaints back to room via WC.
--- NOTE | 2023-12-22 12:30 | NUR ---
DRESSING TO RIGHT FOOT CHANGED. RED TINGED DRAINAGE NOTED. 4X4 GAUZE AND KERLIX APPLIED.
--- NOTE | 2023-12-22 15:42 | NUR ---
dye worker attended interdisciplinary clinical rounding with Dr. Kapadia whom reports patient may be in the hospital for a couple more days. SW will continue to follow.
--- NOTE | 2023-12-22 17:52 | NUR ---
DRESSING TO RIGHT FOOT CHANGED AT THIS TIME WITH RED TIGNED DRAINAGE NOTED. 4X4 AND KERLIX APPLIED.
--- NOTE | 2023-12-22 21:30 | NUR ---
Patient resting in bed with at bedside. Denies any pain or needs at this time. Assessment complete. IV in right AC flushes easily with no complications. Call light and personal items in reach. Bed in low position.
[2023-12-23] VITALS (13 sets, daily range): BP systolic 127–157; BP diastolic 67–74; PULSE 62–95; TEMP 98.4–100.5
--- NOTE | 2023-12-23 04:26 | NUR ---
Hospitalist Mee called for patient requesting a pain med not as strong as morphine and asking if his ulrich catheter that was placed in the OR could be removed. Recieved orders for 650mg Tylenol Q4H PRN for pain and verified catheter could be removed as long as patient is walking good.
--- NOTE | 2023-12-23 04:35 | NUR ---
Ramey catheter discontinued with no complications at this time. 10mL removed from balloon.
--- NOTE | 2023-12-23 06:00 | NUR ---
Patient resting in chiar with eyes closed. Respirations even and unlaborded. Patient was given IV regular insulin verified by two nurses and moved to high sliding scale. Tylenol ordered and ulrich discontinued. No other changes over night. Call light and personal items in reach. Bed in low position and chair alarm on.
--- NOTE | 2023-12-23 06:15 | NUR ---
Patient resting in bed. Denies any pain or needs at this time. Dressing to right foot CDI at this time. No changes over night. Call light and persoanl items in reach. Bed in low position.
--- NOTE | 2023-12-23 08:40 | NUR ---
pt a&ox4 resting in bed, at bedside. vss. am meds given and assessment complete. pt denies pain. right foot dressing is cdi. pt afebrile this morning. tesslon pearls given for cough. fall precautions in place. pt denies needs at this time. call light in reach.
--- NOTE | 2023-12-23 21:15 | NUR ---
PT IN BED, IS ALERT AND ORIENTED X4. HAS LUE FISTULA WITH GOOD PULSE/BRUIT NO THRILL. HAS RT CHEST VASCATH. HAS INT TO RAC. DRSG TO RT FOOT CHANGED PER ORDERS, HAS SIGNIFICANT ODOR, PT REPORTS SMELL HAS IMPROVED. PT DENIES PAIN.
[2023-12-24 00:42] VITALS: BP_SYST 152
[2023-12-24 03:58] VITALS: BP 154/68; PULSE 68; TEMP 99.7
[2023-12-24 04:30] VITALS: BP_SYST 154
--- NOTE | 2023-12-24 06:01 | NUR ---
PT WITH TMAX=99.7 THIS SHIFT. MEDICATED WITH TYLENOL 650MG PO AND TESSALON PERLES FOR COUGH.
[2023-12-24 07:31] VITALS: BP 129/72; PULSE 66; TEMP 98.4
--- NOTE | 2023-12-24 08:45 | NUR ---
pt a&ox4 resting in bed with breakfast. vss. pt remains afebrile this morning. pt denies pain. right foot dressing is cdi. right leg cellulitis outlined and appears to have subsided some. pt denies needs at this time. call light in reach.
[2023-12-24] MEDS ORDERED: FLAGYL500 MG PO (09:00)
[2023-12-24] MEDS ORDERED: CEPHALEXIN500 M1 PO (09:00)
[2023-12-24] MEDS ORDERED: Insulin Glargine-ygfn (Lantus) SQ SCH (09:00)
[2023-12-24 09:37] VITALS: BP_SYST 129
--- NOTE | 2023-12-24 11:30 | NUR ---
INT discontinued. right foot dressing changed before discharge. discharge instructions given to pt and , all questions answered. HH orders sent with pt. instructed pt and on dressing changes until home health makes it out to their house. pt aware of follow up appointments needed. escorted to personal vehicle by wheelchair.
--- NOTE | 2023-12-24 12:06 | NUR ---
Housing And Residence Life Director met with patient to discuss recommendation for HH for wound care. Patient agreeable and provided with Medicare.gov list of HH providers. Patient chose [facility]. Referral and discharge orders faxed to [facility]. SW reviewed Medicare IM form with patient. Patient agreeable to discharge and signed form, placed on chart and copy provided to patient. Discharge plan: Home with HH
--- NOTE | 2023-12-25 11:30 | NUR ---
production staff worker was informed [facility] could not accept pt for wound care. SW called and left voicemail to patient to discuss. GELA spoke with [facility] who can do wound care services in [place]. SW faxed referral. Discharge Plan: home with HH
--- NOTE | 2023-12-25 14:39 | NUR ---
family services worker spoke with Soledad at [facility] who states they can accept pt and just need to call him to schedule. Discharge Plan: home with [facility]
== END 2023-12-24 11:30 | disposition home or self-care (01) | DRG 862 ==
LOC: COL.ER 23:35 → SURG 12-19 01:47
PROVIDERS: Emergency Medicine; Physician Assistant; ADMIT Internal Medicine
PROC: 5A1D70Z Performance of Urinary Filtration, Intermittent, Less than 6 Hours Per Day (ICD-10-PCS; principal; 2023-12-20)
DX: T81.49XA Infection following a procedure, other surgical site, initial encounter (principal); N18.6 End stage renal disease; L03.115 Cellulitis of right lower limb; I12.0 Hypertensive chronic kidney disease with stage 5 chronic kidney disease or end stage renal disease; E11.22 Type 2 diabetes mellitus with diabetic chronic kidney disease; I25.10 Atherosclerotic heart disease of native coronary artery without angina pectoris; M10.9 Gout, unspecified; E03.9 Hypothyroidism, unspecified; E78.1 Pure hyperglyceridemia; E11.621 Type 2 diabetes mellitus with foot ulcer; Z20.822 Contact with and (suspected) exposure to COVID-19; K21.9 Gastro-esophageal reflux disease without esophagitis; B95.61 Methicillin susceptible Staphylococcus aureus infection as the cause of diseases classified elsewhere; E11.51 Type 2 diabetes mellitus with diabetic peripheral angiopathy without gangrene; L97.519 Non-pressure chronic ulcer of other part of right foot with unspecified severity; E66.01 Morbid (severe) obesity due to excess calories; Y83.8 Other surgical procedures as the cause of abnormal reaction of the patient, or of later complication, without mention of misadventure at the time of the procedure; B95.5 Unspecified streptococcus as the cause of diseases classified elsewhere; Z95.5 Presence of coronary angioplasty implant and graft; I25.2 Old myocardial infarction; Z99.2 Dependence on renal dialysis; Z79.890 Hormone replacement therapy; Z87.891 Personal history of nicotine dependence; Z79.82 Long term (current) use of aspirin; Z79.4 Long term (current) use of insulin; Z79.899 Other long term (current) drug therapy; Z23 Encounter for immunization; Z68.34 Body mass index [BMI] 34.0-34.9, adult
CPT/HCPCS: J0348; J0692; J1644; J1815; J1836; J3370; J7050; Q3014